=== PATIENT | male | born 1950 | race Caucasian/White ===

== ENCOUNTER 2021-01-07 07:54 | Day surgery (SDC) | payer BC, MEDICARE ==
[2021-01-07] MEDS ORDERED: Dextrose 5%-Lactated Ringers 1,000 ML IV SCH (08:30)
[2021-01-07] MEDS ORDERED: fentaNYL 100 MCG/2 ML SDV ONE (09:47)
[2021-01-07] MEDS ORDERED: Midazolam 1 MG/ML 2 ML SDV ONE (09:48)
[2021-01-07] MEDS ORDERED: Propofol 200 MG/20 ML SDV ONE (09:48)
[2021-01-08] MEDS ORDERED: Dextrose 5%-Lactated Ringers 1,000 ML IV SCH (08:30)
--- NOTE | 2021-01-25 14:05 | OR ---
DATE OF PROCEDURE: 01/07/2021 SURGEON: Jose De Jesus Phillips MD PREOPERATIVE DIAGNOSIS: History of colon polyps. POSTOPERATIVE DIAGNOSES: 1. Single sessile polyp, ascending colon. 2. Left colonic diverticulosis. OPERATIVE PROCEDURE: Flexible colonoscopy with polypectomy by snare technique. ANESTHESIA: IV sedation. INDICATION FOR PROCEDURE: This is a 70-year-old male presenting with an indication for followup colonoscopy, does have a history of colon polyps in the past. The plan is to proceed with flexible colonoscopy with biopsies and/or polypectomy as indicated. Potential risks including bleeding and perforation were discussed and the patient wishes to proceed. DETAILS OF PROCEDURE: The patient was taken to the operating room, placed in a left lateral decubitus position. IV sedation was administered, after which the initial digital rectal exam was performed which showed a diffusely enlarged prostate without any nodularity or areas of outstanding firmness. The colonoscope was then passed into the rectum with retroflexion revealing uncomplicated hemorrhoidal columns. The scope was then passed to the level of the cecum. The prep was generally quite good. There was a single somewhat sessile- appearing polypoid lesion in the ascending colon. This was removed with 2 separate snare excisions and the tissue was then sent for histologic evaluation. Good hemostasis was noted at the snare site. Otherwise, the patient had some uncomplicated left colonic diverticulosis. No additional abnormalities were noted. Procedure then concluded, and the patient was taken to the recovery room in satisfactory condition. If the lesion is an adenomatous lesion given the sessile nature, repeat colonoscopy will be warranted in 2 years; if this is nonneoplastic lesion, then followup colonoscopy would be in 5 years. Jose De Jesus Phillips MD /[id number]
== END 2021-01-07 13:00 | disposition home or self-care (01) ==
LOC: JP.SDS 07:54
PROVIDERS: ATTEND Surgery
DX: Z12.11 Encounter for screening for malignant neoplasm of colon (principal); K57.30 Diverticulosis of large intestine without perforation or abscess without bleeding; K64.9 Unspecified hemorrhoids; K63.89 Other specified diseases of intestine; E78.5 Hyperlipidemia, unspecified; Z86.010 Personal history of colon polyps; N40.0 Benign prostatic hyperplasia without lower urinary tract symptoms
CPT/HCPCS: 88305; J2250; J2704; J3010; J7121

== ENCOUNTER → 2021-07-19 | Day surgery (SDC) | payer MEDICARE ==
[~2021-07-19] MED LIST: Midazolam 1 MG/ML 2 ML SDV ONE; Propofol 200 MG/20 ML SDV ONE; Sodium Chloride 0.9% 1,000 ML IV SCH; fentaNYL 100 MCG/2 ML SDV ONE
--- NOTE | 2021-07-19 10:43 | OR ---
DATE OF PROCEDURE: 07/19/2021 SURGEON: Flavio Gutierrez MD PROCEDURE: Esophagogastroduodenoscopy. FINDINGS: Very mild inflammation at GE junction concerning for reflux disease. PREOPERATIVE DIAGNOSIS: Epigastric pain. POSTOPERATIVE DIAGNOSIS: Epigastric pain. RISKS: Risks, benefits, alternatives, and limitations including, but not limited to, infection, bleeding, perforation, false positives, false negatives were explained to the patient who wished to proceed. PROCEDURE IN DETAIL: The patient was placed in left lateral decubitus position. The EGD scope was introduced and advanced atraumatically to the second part of the duodenum. No evidence of duodenitis or ulceration. Within the stomach itself, there was no ulceration, no gastritis. No hiatal hernia. No abnormalities on retroflexion. The GE junction showed mild inflammation concerning for reflux disease. This was biopsied in all 4 quadrants using cold biopsy forceps. The remainder of esophagus was inspected without abnormality. The patient tolerated the procedure well. Flavio Gutierrez MD /[id number]
== END ==
LOC: JP.SDS 06:55
PROVIDERS: ATTEND Surgery
DX: K20.90 Esophagitis, unspecified without bleeding (principal); K31.A0 Gastric intestinal metaplasia, unspecified
CPT/HCPCS: 43239; J2250; J2704; J3010; J7030

== ENCOUNTER 2021-10-21 05:26 | Day surgery (SDC) | payer MEDICARE ==
[2021-10-21] MEDS ORDERED: Acetaminophen 500 MG Tab PO ONE (06:00)
[2021-10-21] MEDS ORDERED: Dextrose 5%-Lactated Ringers 1,000 ML IV SCH (06:00)
[2021-10-21] MEDS ORDERED: cefOXitin 2 GM in Sodium Chloride 0.9% 50 ML IV ONE (06:00)
[2021-10-21] MEDS ORDERED: Bupivacaine 0.5%/EPINEPHrine 1:200,000 50 ML MDV ONE (06:31)
[2021-10-21] MEDS ORDERED: Ketamine 500 MG/5 ML MDV IV SCH (07:00)
[2021-10-21] MEDS ORDERED: Ketamine 24 MG in Sodium Chloride 0.9% 19.76 ML IV SCH (07:00)
[2021-10-21] MEDS ORDERED: Succinylcholine 200 MG/10 ML MDV ONE (07:13)
[2021-10-21] MEDS ORDERED: Ondansetron 4 MG/2 ML SDV ONE (07:13)
[2021-10-21] MEDS ORDERED: Rocuronium 50 MG/5 ML Vial ONE (07:13)
[2021-10-21] MEDS ORDERED: Propofol 200 MG/20 ML SDV ONE (07:13)
[2021-10-21] MEDS ORDERED: Glycopyrrolate 0.2 MG/ML 5 ML MDV ONE (07:13)
[2021-10-21] MEDS ORDERED: Dexamethasone 4 MG/ML SDV ONE (07:13)
[2021-10-21] MEDS ORDERED: Neostigmine Methylsulfate 1 MG/ML 5 ML Syringe ONE (07:13)
[2021-10-21] MEDS ORDERED: fentaNYL 250 MCG/5 ML SDV ONE (07:14)
[2021-10-21] MEDS ORDERED: Lidocaine 1% with EPINEPHrine 1:100,000 50 ML MDV ONE (07:46)
[2021-10-21] MEDS ORDERED: Bupivacaine 0.5% 50 ML MDV ONE (07:46)
[2021-10-21] MEDS ORDERED: Lidocaine 1% 50 ML MDV ONE (07:48)
[2021-10-21] MEDS ORDERED: fentaNYL 100 MCG/2 ML SDV ONE (07:53)
[2021-10-21] MEDS ORDERED: Ketorolac 30 MG/ML SDV ONE (08:13)
[2021-10-21] MEDS ORDERED: HYDROmorphone 2 MG Tab PO PRN (09:31)
[2021-10-21] MEDS ORDERED: Indocyanine Green 25 MG SDV INJECT ONE (12:00)
== END 2021-10-21 11:30 | disposition home or self-care (01) ==
LOC: JP.SDS 05:26
PROVIDERS: ATTEND Surgery
DX: K81.1 Chronic cholecystitis (principal); K82.8 Other specified diseases of gallbladder; K43.0 Incisional hernia with obstruction, without gangrene; E78.00 Pure hypercholesterolemia, unspecified; N52.9 Male erectile dysfunction, unspecified; Z79.899 Other long term (current) drug therapy; Z91.018 Allergy to other foods; Z88.5 Allergy status to narcotic agent; Z88.8 Allergy status to other drugs, medicaments and biological substances; Z90.49 Acquired absence of other specified parts of digestive tract; Z98.890 Other specified postprocedural states
CPT/HCPCS: 36415; 47562; 85027; A9270; J0171; J0330; J0694; J1100; J1885; J2001; J2405; J2704; J2710; J2795; J3010; J3490; J7121

== ENCOUNTER 2023-02-12 07:32 | Day surgery (SDC) | payer MEDICARE ==
[~2023-02-12 07:32] MED LIST changes: -Midazolam 1 MG/ML 2 ML SDV ONE; -Sodium Chloride 0.9% 1,000 ML IV SCH
[2023-02-12] MEDS ORDERED: Dextrose 5%-Lactated Ringers 1,000 ML IV SCH (08:00)
== END 2023-02-12 10:50 | disposition home or self-care (01) ==
LOC: JP.SDS 07:32
PROVIDERS: ATTEND Surgery
DX: Z12.11 Encounter for screening for malignant neoplasm of colon (principal); K57.30 Diverticulosis of large intestine without perforation or abscess without bleeding; K64.9 Unspecified hemorrhoids; E78.5 Hyperlipidemia, unspecified; Z86.010 Personal history of colon polyps; Z87.19 Personal history of other diseases of the digestive system; Z88.5 Allergy status to narcotic agent; Z88.8 Allergy status to other drugs, medicaments and biological substances
CPT/HCPCS: G0105; J2704; J3010; J7121

== ENCOUNTER 2023-12-31 06:25 | Day surgery (SDC) | payer MEDICARE ==
[2023-12-31] MEDS: Sodium Chloride 0.9% 1,000 ML IV SCH (07:15)
[2023-12-31] MEDS ORDERED: Propofol 200 MG/20 ML SDV ONE (07:33)
[2023-12-31] MEDS ORDERED: fentaNYL 100 MCG/2 ML SDV ONE (07:34)
== END 2023-12-31 09:32 | disposition home or self-care (01) ==
LOC: JP.SDS 06:25
PROVIDERS: ATTEND Surgery
DX: K22.70 Barrett's esophagus without dysplasia (principal); K20.90 Esophagitis, unspecified without bleeding; K22.89 Other specified disease of esophagus
CPT/HCPCS: 43239; 88305; J2704; J3010; J7030